=== PATIENT | female | born 1980 | race Two or more races ===

== ENCOUNTER 2020-09-29 22:04 | Inpatient (IN) | payer OTHER ==
[~2020-09-29] VITALS: Ht 157.5 cm; Wt 62.6 kg
[2020-09-29 22:30] VITALS: BP 114/71
--- NOTE | 2020-09-29 22:30 | NUR ---
TELE/RN ADMITTING NOTE RECEIVED REPORT FROM PRISCILA BEVERLY AT [facility]. PATIENT ARRIVED TO UNIT VIA GURNEY AND 2 [employer] SERGEANT PRECINCT. PATIENT ACCOMPANIED TO ROOM 327-2. PATIENT IS ALERT AND ORIENTED X 4. ABLE TO MAKE NEEDS KNOWN. DENIES PAIN AT THIS TIME. CONTINUES ON ROOM AIR WITH NO S/SX OF RESPIRATORY DISTRESS NOTED. IV ACCESS TO LEFT AC #20G INTACT, PATENT AND SALINE LOCKED. SKIN CHECK PERFORMED ON ADMISSION WITH NO SKIN ISSUES NOTED. TELE MONITOR ATTACHED WITH CURRENT READING SR. PATIENT BEING ADMITTED WITH DX OF CHEST PAIN. PATIENT TO HAVE CTA DONE. MRSA SWAB TO BE DONE ON ADMISSION. PATIENT ORIENTED TO ROOM, CALL LIGHT AND UNIT. CALL LIGHT WITHIN REACH. ASPIRATION, FALL AND SAFETY PRECAUTIONS MAINTAINED. WILL CONTINUE TO MONITOR.
[2020-09-29] MEDS ORDERED: MAGN400O6 PO (22:42)
[2020-09-29] MEDS ORDERED: DULO60CA45 PO (22:42)
[2020-09-29] MEDS ORDERED: PANT40TA2 PO (22:42)
[2020-09-29] MEDS ORDERED: NITR0.4T48 SL (22:42)
[2020-09-29] MEDS ORDERED: ACET650T10 PO (22:42)
[2020-09-29] MEDS ORDERED: ASPI-1420 PO (22:42)
[2020-09-29] MEDS ORDERED: ONDA4TAB5 IV (22:42)
[2020-09-29] MEDS ORDERED: METO25TA4 PO (22:42)
[2020-09-29] MEDS ORDERED: LITH300T3 PO (22:42)
[2020-09-29] MEDS ORDERED: ALLA266C2 TP (22:42)
[2020-09-30] MEDS ORDERED: ZOLPIDEM TARTRATE 5 MG TABLET PO PRN
[2020-09-30] MEDS ORDERED: ONDANSETRON HCL/PF 4 MG/2 ML VIAL IVP PRN
[2020-09-30] MEDS ORDERED: MAG HYDROX/AL HYDROX/SIMETH 30 ML UDC PO PRN
[2020-09-30] MEDS ORDERED: IV D5/0.45 NACL 1,000 ML IV PRN
[2020-09-30] MEDS ORDERED: Z GUARD REMEDY 2 OZ OINT TP PRN
[2020-09-30] MEDS ORDERED: HYDROCODONE/APAP 5/325MG TABLET PO PRN
[2020-09-30] MEDS ORDERED: ACETAMINOPHEN 325 MG TABLET PO PRN
[2020-09-30] MEDS ORDERED: MAGNESIUM HYDROXIDE 30 ML UDC PO PRN
[2020-09-30 00:07] LABS: BASOPHILS # (AUTO) 0.1 K/uL (0.0-0.2); BASOPHILS % (AUTO) 0.8 % (0.0-2.0); EOSINOPHILS % (AUTO) 7.8 % (0.0-6.0); HEMATOCRIT 41 % (33-45); HEMOGLOBIN 13.2 g/dL (11.5-14.8); LYMPHOCYTES # (AUTO) 3.1 K/uL (0.8-4.8); LYMPHOCYTES % (AUTO) 32.8 % (20.0-44.0); MEAN CORPUSCULAR HGB CONC 33 g/dl (31.0-36.0); MEAN CORPUSCULAR VOLUME 94 fL (82-100); MONOCYTES # (AUTO) 0.4 K/uL (0.1-1.30); MONOCYTES % (AUTO) 4.6 % (2.0-12.0); NEUTROPHILS # (AUTO) 5.1 K/uL (1.8-8.9); PLATELET COUNT (AUTO) 282 K/uL (150-450); RED BLOOD CELL COUNT(AUTO) 4.31 MIL/uL (4.0-5.2); WHITE BLOOD COUNT (AUTO) 9.5 K/uL (4.3-11.0)
[2020-09-30 00:40] LABS: ALBUMIN 3.3 g/dL (3.4-5.0); BILIRUBIN,TOTAL 0.4 mg/dL (0.2-1.0); CALCIUM, SERUM 8.5 mg/dL (8.5-10.1); POTASSIUM 4.4 mmol/L (3.5-5.1)
--- NOTE | 2020-09-30 06:35 | NUR ---
TELE/RN CLOSING NOTE PATIENT CURRENTLY SLEEPING IN BED. ALERT AND ORIENTED X 4. ABLE TO MAKE NEEDS KNOWN. DENIES PAIN AT THIS TIME. CONTINUES ON ROOM AIR WITH NO S/SX OF RESPIRATORY DISTRESS NOTED. IV ACCESS TO LEFT AC #20G INTACT AND PATENT. CONTINUES ON IVF D5 1/2 NS @ 75ML/HR. CONTINUES ON NPO STATUS FOR CTA TODAY. PATIENT WOULD LIKE TO SIGN CONSENT WITH DOCTOR - CONSENT READY IN CHART. CALL LIGHT WITHIN REACH. ASPIRATION, FALL AND SAFETY PRECAUTIONS MAINTAINED. WILL ENDORSE PLAN OF CARE TO ONCOMING SHIFT.
[2020-09-30 06:44] LABS: BASOPHILS # (AUTO) 0.1 K/uL (0.0-0.2); EOSINOPHILS % (AUTO) 8.1 % (0.0-6.0); HEMATOCRIT 41 % (33-45); HEMOGLOBIN 13.5 g/dL (11.5-14.8); LYMPHOCYTES # (AUTO) 3.1 K/uL (0.8-4.8); MEAN CORPUSCULAR HGB CONC 33 g/dl (31.0-36.0); MEAN CORPUSCULAR VOLUME 96 fL (82-100); MONOCYTES # (AUTO) 0.4 K/uL (0.1-1.30); MONOCYTES % (AUTO) 4.6 % (2.0-12.0); NEUTROPHILS # (AUTO) 5.3 K/uL (1.8-8.9); NEUTROPHILS % (AUTO) 54.3 % (43.0-81.0); PLATELET COUNT (AUTO) 276 K/uL (150-450); RED BLOOD CELL COUNT(AUTO) 4.25 MIL/uL (4.0-5.2); WHITE BLOOD COUNT (AUTO) 9.7 K/uL (4.3-11.0)
[2020-09-30 07:12] LABS: CALCIUM, SERUM 8.6 mg/dL (8.5-10.1); CREATININE 0.9 mg/dL (0.6-1.3); MAGNESIUM 2.7 mg/dL (1.8-2.4); PHOSPHORUS 3.2 mg/dL (2.5-4.9); POTASSIUM 4.2 mmol/L (3.5-5.1)
--- NOTE | 2020-09-30 07:25 | NUR ---
RN OPENING NOTE RECEIVED PATIENT IN BED. A/O X4. ON ROOM AIR, NO SOB NOTED. IN NO APPARENT DISTRESS. DENIES ANY PAIN OR DISCOMFORT AT THIS TIME. TELE READING SHOWS SR 70'S. IV ACCESS ON L AC #20 G, D5 1/2NS X 75 ML/HR, INTACT AND PATENT. SAFETY MEASURES MAINTAINED. BED IN LOWEST POSITION, BRAKES LOCKED. SIDE RAILS UP X2. CALL LIGHT WITHIN REACH. WILL CONTINUE PLAN OF CARE.
[2020-09-30] MEDS ORDERED: PANTOPRAZOLE 40 MG TABLET.DR PO SCH (07:30)
[2020-09-30 07:33] LABS: THYROID STIMULATING HORMONE 3.425 uIU/mL (0.358-3.74)
[2020-09-30] MEDS ORDERED: IOHEXOL-350 100 ML VIAL IV ONE (07:38)
[2020-09-30] MEDS ORDERED: METOPROLOL TARTRATE INJ 5 MG/5 ML AMPUL ONE (07:38)
[2020-09-30] MEDS ORDERED: NITROGLYCERIN 0.4 MG/TAB BOTTLE ONE (07:38)
[2020-09-30] MEDS ORDERED: CT SWABBABLE VALVE TRANS SET 1 EA INFUS.SET MC ONE (07:39)
[2020-09-30] MEDS ORDERED: IV NS 0.9% 250 ML IV ONE (07:39)
--- NOTE | 2020-09-30 07:56 | NUR ---
consented to CTA heart' AOx4; denies CP or SOB; given Metoprolol 5mg IVPx1; tolerated procedure; report given to floor [facility]; sent back to floor via wheelchair
[2020-09-30 08:00] VITALS: BP 98/67
[2020-09-30] MEDS ORDERED: NITROGLYCERIN 0.4 MG/TAB BOTTLE SL ONE (08:00)
[2020-09-30] MEDS ORDERED: METOPROLOL TARTRATE INJ 5 MG/5 ML AMPUL IVP PRN (08:00)
[2020-09-30] MEDS ORDERED: ONDA4VIA52 IV (08:51)
[2020-09-30] MEDS ORDERED: ASPIRIN EC 81 MG TABLET.DR PO SCH (09:00)
[2020-09-30 12:00] VITALS: BP 100/64
--- NOTE | 2020-09-30 16:00 | NUR ---
DISCHARGE NOTE PATIENT DISCHARGED. AMBULATORY. BP 100/74 RI 79 RR 18 T 98.4 SA02 96% HEALTH TEACHING AND DISCHARGE INSTRUCTIONS GIVEN. PATIENT VERBALIZED UNDERSTANDING. REMOVED TELE BOX, IV ACCESS AND ID [id number]. ALL FORMS SIGNED. PT WAS PICKED UP BY HIS DAD.
[2020-09-30] MEDS ORDERED: ENOXAPARIN SODIUM 40 MG/0.4 ML DISP.SYRIN SQ SCH ×2 (21:00)
== END 2020-09-30 16:00 | disposition home or self-care (01) | DRG 444 ==
LOC: CT 22:04 → TELE 22:06
PROVIDERS: ADMIT Student in an Organized Health Care Education/Training Program; ATTEND Nurse Practitioner Acute Care
DX: K80.00 Calculus of gallbladder with acute cholecystitis without obstruction (principal); I21.A1 Myocardial infarction type 2; K22.4 Dyskinesia of esophagus; F31.9 Bipolar disorder, unspecified; F20.9 Schizophrenia, unspecified; Z83.3 Family history of diabetes mellitus
CPT/HCPCS: 36415; 75574; 80048-TC; 80053-TC; 80061-TC; 83735-TC; 84100-TC; 84443-TC; 84484-TC; 85025-TC; 87081-TC; 93307-TC; G0378; J1650; J3490; J7050; Q9967